=== PATIENT | male | born 1970 | race African-American/Black ===

== ENCOUNTER 2017-01-15 17:41 | Observation (INO) | payer OTHER ==
[~2017-01-15] VITALS: Ht 170.2 cm; Wt 86.4 kg
[2017-01-15 20:02] VITALS: BP 145/86; PULSE 89; TEMP 97.7
[2017-01-16] MEDS ORDERED: IMITREX100 MG PO (01:50)
[2017-01-16] MEDS ORDERED: TOPAMAX 25MG25 M1 PO (01:52)
[2017-01-16 02:23] VITALS: BP 140/89; PULSE 83; TEMP 98.6
[2017-01-16 06:19] VITALS: BP 128/83; PULSE 77; TEMP 98
[2017-01-16 09:53] VITALS: BP 129/69; PULSE 76; TEMP 98.2
== END 2017-01-16 13:00 | disposition home or self-care (01) ==
LOC: MEDICAL 17:41 → SURG 19:44
DX: N20.0 Calculus of kidney (principal); N20.1 Calculus of ureter
CPT/HCPCS: G0378; G0379; J1885; J7030

== ENCOUNTER → 2021-07-18 | Outpatient (CLI) | payer OTHER ==
[~2021-07-18] MED LIST: IMITREX100 MG PO; TOPAMAX 25MG25 M1 PO
== END ==
LOC: COL.LAB 14:43
DX: N20.1 Calculus of ureter (principal); Z80.42 Family history of malignant neoplasm of prostate